=== PATIENT | male | born 1960 | race Asian ===

== ENCOUNTER 2020-10-27 08:45 | Day surgery (SDC) | payer OTHER ==
[~2020-10-27] VITALS: Ht 180.3 cm; Wt 87.1 kg
[2020-10-27] MEDS ORDERED: ZYLOPRIM 100MG100 MG PO (09:34)
[2020-10-27] MEDS ORDERED: ZOCOR 20MG20 MG PO (09:35)
[2020-10-27] MEDS ORDERED: NORVASC 5MG5 MG/TAB PO (09:35)
[2020-10-27] MEDS ORDERED: PRINIVIL20 MG PO (09:35)
[2020-10-27] MEDS ORDERED: ASPIRIN E.C. 8181 MG PO (09:36)
[2020-10-27] MEDS ORDERED: EPA FISH OIL1 SGL PO (09:37)
[2020-10-27 10:16] VITALS: BP 131/94; PULSE 94; TEMP 98.6
[2020-10-27 11:05] VITALS: BP 111/75; PULSE 83; TEMP 98
[2020-10-27 11:20] VITALS: BP 111/73; PULSE 74
[2020-10-27 11:35] VITALS: BP 116/83; PULSE 76
--- NOTE | 2020-10-27 11:40 | NUR ---
Pt returned via cart to recliner in bay 5 at 1105. Pt A&O. VSS-see flowsheet. Pt denied wanting to eat but tolerated water. Dr Arthur in to see pt post colonoscopy. IV removed and pressure dressing applied. Discharge teaching completed, pt verbalized understanding. After pt dressed independently, taken via wheelchair to private vehicle for son, Al, to drive pt home. Pt left with discharge folder in hand.
== END 2020-10-27 11:40 | disposition home or self-care (01) ==
LOC: SDCO 08:45
DX: Z12.11 Encounter for screening for malignant neoplasm of colon (principal); D12.2 Benign neoplasm of ascending colon; K62.1 Rectal polyp; K64.0 First degree hemorrhoids; I10 Essential (primary) hypertension; E78.5 Hyperlipidemia, unspecified; M10.9 Gout, unspecified; Z20.822 Contact with and (suspected) exposure to COVID-19; Z79.82 Long term (current) use of aspirin; Z79.899 Other long term (current) drug therapy; Z86.73 Personal history of transient ischemic attack (TIA), and cerebral infarction without residual deficits; Z86.11 Personal history of tuberculosis
CPT/HCPCS: J2704; J7120